=== PATIENT | male | born 1975 | race Caucasian/White ===

== ENCOUNTER 2018-07-10 20:40 | Emergency (ER) | payer SELFPAY ==
[2018-07-10] MEDS ORDERED: Albuterol/Ipratropium 3.0-0.5 MG/3 ML Neb Soln NEB ONE (21:14)
[2018-07-10] MEDS ORDERED: methylPREDNISolone Sodium Succinate 125 MG/2 ML SDV IM ONE (21:14)
--- NOTE | 2018-07-10 21:19 | EDM.PDOC ---
<Larry Carroll - Last Filed: 07/10/18 23:15> ED HPI GENERAL MEDICAL PROBLEM - General Chief Complaint: Respiratory Problem Stated Complaint: DIFF BREATHING Time Seen by Provider: 07/10/18 20:53 - History of Present Illness INITIAL COMMENTS - FREE TEXT/NARRATIVE: I've seen and examined the patient He is reporting nasal congestion and a swelling sensation in his neck, has swollen lymph nodes on bilateral anterior chain and nasal congestion sinus tenderness over maxillary sinus no muffled voice drooling or trismus no fever chills sweats HEENT grossly within normal limits outside of left maxillary sinus tenderness bilateral supraorbital sinus tenderness Chest clear throughout CV regular rate and rhythm Abdomen benign Extremities full range of motion strength 5 out of 5 no edema 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 [No Known Home Meds] 07/10/18 [History] ED ROS GENERAL - Review of Systems Review Of Systems: See Below ED EXAM, GENERAL - Physical Exam Exam: See Below Course - Vital Signs Last Recorded V/S: Last Vital Signs Temp 97.7 F 07/10/18 23:23 Pulse 78 07/10/18 23:23 Resp 18 07/10/18 23:23 BP 134/73 07/10/18 23:23 Pulse Ox 96 07/10/18 23:23 - Orders/Labs/Meds Orders: Active Orders 24 hr Category Date Time Status EKG Documentation Completion [RC] STAT Care 07/10/18 21:19 Active RT Aerosol Therapy [RC] ASDIRECTED Care 07/10/18 21:14 Active CULTURE STREP A CONFIRMATION [RM] Stat Lab 07/10/18 21:00 Results STREP SCRN A RAPID W CULT CONF [RM] Stat Lab 07/10/18 21:00 Results Labs: Laboratory Tests 07/10/18 07/10/18 Range/Units 21:21 21:21 WBC 6.17 (4.0-11.0) K/uL RBC 4.94 (4.50-5.90) M/uL Hgb 15.1 (13.0-17.0) g/dL Hct 42.2 (38.0-50.0) % MCV 85.4 (80.0-98.0) fL MCH 30.6 (27.0-32.0) pg MCHC 35.8 (31.0-37.0) g/dL RDW Std Deviation 39.2 (28.0-62.0) fl RDW Coeff of Foreign 13 (11.0-15.0) % Plt Count 120 L (150-400) K/uL MPV 11.60 (7.40-12.00) fL Neut % (Auto) 55.4 (48.0-80.0) % Lymph % (Auto) 29.2 (16.0-40.0) % [place] % (Auto) 14.9 (0.0-15.0) % Eos % (Auto) 0.2 (0.0-7.0) % Baso % (Auto) 0.3 (0.0-1.5) % Neut # (Auto) 3.4 (1.4-5.7) K/uL Lymph # (Auto) 1.8 (0.6-2.4) K/uL [place] # (Auto) 0.9 H (0.0-0.8) K/uL Eos # (Auto) 0.0 (0.0-0.7) K/uL Baso # (Auto) 0.0 (0.0-0.1) K/uL Nucleated RBC % 0.0 /100WBC Nucleated RBCs # 0 K/uL Sodium 138 (136-148) mmol/L Potassium 4.0 (3.5-5.1) mmol/L Chloride 104 (98-107) mmol/L Carbon Dioxide 24.3 (21.0-32.0) mmol/L BUN 10 (7.0-18.0) mg/dL Creatinine 0.8 (0.8-1.3) mg/dL Est Cr Clr Drug Dosing 106.77 mL/min Estimated GFR (MDRD) > 60.0 ml/min Glucose 95 (74-106) mg/dL Calcium 9.3 (8.5-10.1) mg/dL Total Bilirubin 0.9 (0.2-1.0) mg/dL AST 30 (15-37) IU/L ALT 29 (14-63) IU/L Alkaline Phosphatase 86 (46-116) U/L Total Protein 7.1 (6.4-8.2) g/dL Albumin 4.0 (3.4-5.0) g/dL Globulin 3.1 (2.6-4.0) g/dL Albumin/Globulin Ratio 1.3 (0.9-1.6) TSH 3rd Generation 1.87 (0.36-3.74) uIU/mL Meds: Medications Discontinued Medications Generic Name Dose Route Start Last Admin Trade Name Freq PRN Reason Stop Dose Admin Albuterol/Ipratropium 3 ml 07/10/18 21:14 07/10/18 21:21 Duoneb 3.0-0.5 Mg/3 Ml NEB 07/10/18 21:15 3 ml ONETIME ONE Administration Methylprednisolone Sodium Succinate 125 mg 07/10/18 21:14 07/10/18 21:33 Solu-Medrol IM 07/10/18 21:15 125 mg ONETIME ONE Administration Departure - Departure Time of Disposition: 23:18 Disposition: Home, Self-Care 01 Condition: Good Clinical Impression: Sinusitis Qualifiers: Sinusitis location: maxillary Chronicity: acute Recurrence: non-recurrent Qualified Code(s): J01.00 - Acute maxillary sinusitis, unspecified - Discharge Information Instructions: Sinusitis, Adult, [id number] Referrals: PCP,Not In Area [Primary Care Provider] - Forms: ED Department Discharge Additional Instructions: The following information is given to patients seen in the emergency department who are being discharged to home. This information is to outline your options for follow-up care. We provide all patients seen in our emergency department with a follow-up referral. The need for follow-up, as well as the timing and circumstances, are variable depending upon the specifics of your emergency department visit. If you don't have a primary care physician on staff, we will provide you with a referral. We always advise you to contact your personal physician following an emergency department visit to inform them of the circumstance of the visit and for follow-up with them and/or the need for any referrals to a consulting specialist. The emergency department will also refer you to a specialist when appropriate. This referral assures that you have the opportunity for follow-up care with a specialist. All of these measure are taken in an effort to provide you with optimal care, which includes your follow-up. Under all circumstances we always encourage you to contact your private physician who remains a resource for coordinating your care. When calling for follow-up care, please make the office aware that this follow-up is from your recent emergency room visit. If for any reason you are refused follow-up, please contact the [facility] emergency department at and asked to speak to the emergency department charge nurse. - My Orders Last 24 Hours: My Active Orders 07/10/18 21:00 CULTURE STREP A CONFIRMATION [RM] Stat STREP SCRN A RAPID W CULT CONF [RM] Stat 07/10/18 21:14 RT Aerosol Therapy [RC] ASDIRECTED 07/10/18 21:19 EKG Documentation Completion [RC] STAT - Assessment/Plan Last 24 Hours: My Active Orders 07/10/18 21:00 CULTURE STREP A CONFIRMATION [RM] Stat STREP SCRN A RAPID W CULT CONF [RM] Stat 07/10/18 21:14 RT Aerosol Therapy [RC] ASDIRECTED 07/10/18 21:19 EKG Documentation Completion [RC] STAT <Lizzy Rivera E - Last Filed: 07/11/18 11:07> ED HPI GENERAL MEDICAL PROBLEM - General Source of Information: Reports: Patient History Limitations: Reports: No Limitations - History of Present Illness INITIAL COMMENTS - FREE TEXT/NARRATIVE: HISTORY AND PHYSICAL: History of present illness: Patient is a 42-year-old male who presents to the emergency room today with concerns of throat swelling/spasm and difficulties breathing with "spasm" to the left arm/shoulder. Patient states that this started last night around 11 PM and he has not been able to sleep due to his symptoms. He states as it feels as if everything is "swollen". He states that every once a while it does hurt when he swallows but this is not a significant symptom for him. He states he also feels as if he super "run down". He says he feels super tired the past 2 days and is concerned because he had a history of blood concerns/thyroid concerns when he was younger; although he is not sure what specifically was wrong. Patient denies fever, chills, sinus pain, ear pain, nausea, vomiting, diarrhea, constipation, chest pain, or all other GI, , cardiovascular, respiratory symptoms. Patient denies any health history other than stated above. Review of systems: As per history of present illness and below otherwise all systems reviewed and negative. Past medical history: As per history of present illness and as reviewed below otherwise noncontributory. Surgical history: As per history of present illness and as reviewed below otherwise noncontributory. Social history: See social history for further information Family history: As per history of present illness and as reviewed below otherwise noncontributory. Physical exam: General: Patient is alert, oriented, and in no acute distress. He is sitting comfortably on exam table. HEENT: Atraumatic, normocephalic, pupils equal and reactive bilaterally, negative for conjunctival pallor or scleral icterus, mucous membranes moist, TMs normal bilaterally, throat clear, neck supple, nontender, trachea midline. No drooling or trismus noted. No meningeal signs. No hot potato voice noted. Lungs: Clear to auscultation, breath sounds equal bilaterally, chest nontender. Heart: S1S2, regular rate and rhythm without overt murmur Abdomen: Soft, nondistended, nontender. Negative for masses or hepatosplenomegaly. Negative for costovertebral tenderness. Pelvis: Stable nontender. Genitourinary: Deferred. Rectal: Deferred. Skin: Intact, warm, dry. No lesions or rashes noted. Extremities: Atraumatic, negative for cords or calf pain. Neurovascular unremarkable. Neuro: Awake, alert, oriented. Cranial nerves II through XII unremarkable. Cerebellum unremarkable. Motor and sensory unremarkable throughout. Exam nonfocal. Notes: Physical exam is unremarkable. Vitals today are reassuring. The patient's labs have returned which are reassuring. Chest x-ray shows no acute cardiopulmonary process. At this point Dr. Saucedo took over patient's plan of care Diagnostics: CBC, CMP, TSH, influenza, strep, chest XR, ekg Therapeutics: duoneb, solumedrol Impression: Sinusitis Definitive disposition and diagnosis as appropriate pending reevaluation and review of above. Past Medical History - Past Health History Medical/Surgical History: Denies Medical/Surgical History - Infectious Disease History Infectious Disease History: Reports: Chicken Pox - Past Surgical History Musculoskeletal Surgical History: Reports: Arthroscopic Knee, Arthroscopic Procedure Social & Family History - Family History Family Medical History: Noncontributory - Tobacco Use Smoking Status *Q: Current Every Day Smoker Years of Tobacco use: 20 Packs/Tins Daily: 1 - Recreational Drug Use Recreational Drug Use: No ED ROS GENERAL - Review of Systems Review Of Systems: ROS reveals no pertinent complaints other than HPI. ED EXAM, GENERAL - Physical Exam Exam: See Below (See dictation) Course - Orders/Labs/Meds Labs: Laboratory Tests 07/10/18 07/10/18 Range/Units 21:21 21:21 WBC 6.17 (4.0-11.0) K/uL RBC 4.94 (4.50-5.90) M/uL Hgb 15.1 (13.0-17.0) g/dL Hct 42.2 (38.0-50.0) % MCV 85.4 (80.0-98.0) fL MCH 30.6 (27.0-32.0) pg MCHC 35.8 (31.0-37.0) g/dL RDW Std Deviation 39.2 (28.0-62.0) fl RDW Coeff of Foreign 13 (11.0-15.0) % Plt Count 120 L (150-400) K/uL MPV 11.60 (7.40-12.00) fL Neut % (Auto) 55.4 (48.0-80.0) % Lymph % (Auto) 29.2 (16.0-40.0) % [place] % (Auto) 14.9 (0.0-15.0) % Eos % (Auto) 0.2 (0.0-7.0) % Baso % (Auto) 0.3 (0.0-1.5) % Neut # (Auto) 3.4 (1.4-5.7) K/uL Lymph # (Auto) 1.8 (0.6-2.4) K/uL [place] # (Auto) 0.9 H (0.0-0.8) K/uL Eos # (Auto) 0.0 (0.0-0.7) K/uL Baso # (Auto) 0.0 (0.0-0.1) K/uL Nucleated RBC % 0.0 /100WBC Nucleated RBCs # 0 K/uL Sodium 138 (136-148) mmol/L Potassium 4.0 (3.5-5.1) mmol/L Chloride 104 (98-107) mmol/L Carbon Dioxide 24.3 (21.0-32.0) mmol/L BUN 10 (7.0-18.0) mg/dL Creatinine 0.8 (0.8-1.3) mg/dL Est Cr Clr Drug Dosing 106.77 mL/min Estimated GFR (MDRD) > 60.0 ml/min Glucose 95 (74-106) mg/dL Calcium 9.3 (8.5-10.1) mg/dL Total Bilirubin 0.9 (0.2-1.0) mg/dL AST 30 (15-37) IU/L ALT 29 (14-63) IU/L Alkaline Phosphatase 86 (46-116) U/L Total Protein 7.1 (6.4-8.2) g/dL Albumin 4.0 (3.4-5.0) g/dL Globulin 3.1 (2.6-4.0) g/dL Albumin/Globulin Ratio 1.3 (0.9-1.6) TSH 3rd Generation 1.87 (0.36-3.74) uIU/mL Meds: Medications Discontinued Medications Generic Name Dose Route Start Last Admin Trade Name Freq PRN Reason Stop Dose Admin Albuterol/Ipratropium 3 ml 07/10/18 21:14 07/10/18 21:21 Duoneb 3.0-0.5 Mg/3 Ml NEB 07/10/18 21:15 3 ml ONETIME ONE Administration Methylprednisolone Sodium Succinate 125 mg 07/10/18 21:14 07/10/18 21:33 Solu-Medrol IM 07/10/18 21:15 125 mg ONETIME ONE Administration Departure - Departure Condition: Good
--- NOTE | 2018-07-10 21:58 | CR ---
INDICATION: Pain, shortness of breath TECHNIQUE: Chest 2 views. COMPARISON: None FINDINGS: Cardiovascular and mediastinum: Heart size and vasculature are normal in caliber and appearance. Mediastinum is within normal limits. Lungs and pleural spaces: Lungs are clear. No sign of infiltrate or mass. No sign of pleural effusion. No pneumothorax. Bones and soft tissues: No significant findings. IMPRESSION: Unremarkable chest. Dictated by Zion Jeffrey MD @ Jul 10 2018 9:56PM Signed by Dr. Zion Jeffrey @ Jul 10 2018 9:57PM
[2018-07-10 22:20] LABS: CHLORIDE,CL 104 mmol/L (98-107); SODIUM,NA 138 mmol/L (136-148)
== END 2018-07-10 23:25 | disposition home or self-care (01) ==
LOC: MW.ED 20:40
DX: J01.00 Acute maxillary sinusitis, unspecified (principal); F17.210 Nicotine dependence, cigarettes, uncomplicated
CPT/HCPCS: 36415; 71046; 80053; 84443; 85025; 87081; 87804; 87880; 93005; 94640; 96372; 99284; J2930; 99283; J7620-GY